=== PATIENT | female | born 2000 | race Caucasian/White ===

== ENCOUNTER 2023-06-05 09:44 | Emergency (ER) | payer MEDICAID ==
[~2023-06-05] VITALS: Ht 152.4 cm; Wt 73.5 kg
[2023-06-05 10:00] VITALS: BP 102/67; PULSE 76; RESP 18; TEMP 98; O2SAT 98
[2023-06-05 10:52] LABS: FLU A ANTIGEN negative (NEGATIVE); FLU B ANTIGEN NEGATIVE (NEGATIVE)
[2023-06-05] MEDS ORDERED: KETOROLAC 60 MG/2 ML VIAL IM ONE (11:45)
[2023-06-05] MEDS ORDERED: ONDANSETRON 4 MG ODT PO ONE (11:45)
[2023-06-05] MEDS ORDERED: ONDA8TAB87 PO (12:07)
[2023-06-05] MEDS ORDERED: IBUP-2213 PO (12:07)
[2023-06-05] MEDS ORDERED: ATA25 PO (12:07)
[2023-06-05] MEDS ORDERED: HYDR-5191 PO (12:07)
[2023-06-05 12:39] VITALS: BP 112/74; PULSE 74; RESP 19; TEMP 98; O2SAT 99
== END 2023-06-05 12:39 | disposition home or self-care (01) ==
LOC: MED 09:44
DX: R10.13 Epigastric pain (principal); R11.0 Nausea; R51.9 Headache, unspecified; M79.10 Myalgia, unspecified site; Z98.890 Other specified postprocedural states; Z20.822 Contact with and (suspected) exposure to COVID-19
CPT/HCPCS: 81002; 81025; 87426; 87804; 96372; 99283; J1885; Q0162

== ENCOUNTER 2023-07-16 07:29 | Emergency (ER) | payer MEDICAID ==
[~2023-07-16] VITALS: Ht 157.5 cm; Wt 63.5 kg
[~2023-07-16 07:29] MED LIST: ATA25 PO; HYDR-5191 PO; IBUP-2213 PO; ONDA8TAB87 PO
[2023-07-16 07:34] VITALS: BP 105/55; PULSE 66; RESP 14; TEMP 98; O2SAT 98
[2023-07-16 07:56] VITALS: BP 105/55; PULSE 66; RESP 14; TEMP 98; O2SAT 98
[2023-07-16] MEDS ORDERED: ONDANSETRON 4 MG ODT PO ONE (08:00)
[2023-07-16 08:19] LABS: APPEARANCE,URINE CLEAR (CLEAR); BILIRUBIN,URINE NEGATIVE (NEGATIVE); BLOOD, URINE NEGATIVE (NEGATIVE); COLOR,URINE YELLOW (YELLOW); LEUKOCYTE ESTERASE ,URINE 1+ (NEGATIVE); NITRITE, URINE POSITIVE (NEGATIVE); PROTEIN,URINE NEGATIVE (NEGATIVE); UGLUCOSE NEGATIVE (NEGATIVE); UROBILINOGEN,URINE 0.2 EU/dL (0.2 - 1)
[2023-07-16 08:30] LABS: AMPHETAMINE, URINE NEGATIVE ng/ml (NEG <=1000); BARBITURATE, URINE NEGATIVE ng/ml (NEG <=200); BENZODIAZEPINE, URINE NEGATIVE ng/mL (NEG <=200); CANNABINOID, URINE NEGATIVE ng/mL (NEG <=50); COCAINE, URINE NEGATIVE ng/mL (NEG <=300); OPIATE, URINE NEGATIVE ng/mL (NEG <=2000); PHENCYCLIDINE SCREEN,URINE NEGATIVE ng/mL (NEG <=25)
[2023-07-16 08:30] LABS: BASOPHILS # (AUTO) 0.1 K/uL (0.00-0.22); BASOPHILS % (AUTO) 0.9 % (0.0-2.0); EOSINOPHILS # (AUTO) 0.2 K/uL (0-0.4); EOSINOPHILS % (AUTO) 2.7 % (0.0-4.0); HEMATOCRIT 42.4 % (36-48); HEMOGLOBIN 14.4 g/dL (12.0-16.0); LYMPHOCYTES # (AUTO) 1.7 K/uL (2.5-16.5); LYMPHOCYTES % (AUTO) 27.6 % (20.5-51.1); MEAN CORPUSCULAR HEMOGLOBIN 31 pg (27-31); MEAN CORPUSCULAR HGB CONC 34 g/dL (33-37); MEAN CORPUSCULAR VOLUME 90.4 fL (80-94); MONOCYTES # (AUTO) 0.3 K/uL (0.8-1.0); MONOCYTES % (AUTO) 5.4 % (1.7-9.3); NEUTROPHILS # (AUTO) 3.9 K/uL (1.8-7.7); NEUTROPHILS % (AUTO) 63.4 % (42.2-75.2); PLATELET COUNT (AUTO) 259 K/uL (140-450); RED BLOOD CELL COUNT(AUTO) 4.69 MIL/uL (4.20-5.40); RED CELL DISTRIBUTION WIDTH 12.9 % (11.6-13.7); WHITE BLOOD COUNT (AUTO) 6.1 K/uL (4.8-10.8)
[2023-07-16 08:45] LABS: BACTERIA,URINE 2+ /HPF (None Seen); RBC,URINE 0-5 /HPF (0-5); SQUAMOUS EPITHELIAL CELL,UR 20-50 /LPF (0-3 (FEW)); WBC,URINE 16-25 (MOD) /HPF (0-5)
[2023-07-16 08:50] LABS: ALBUMIN 3.7 g/dL (3.4-5.0); ANION GAP 8.3 (8-16); CARBON DIOXIDE 29.5 mmol/L (21-32); CREATININE 0.8 mg/dL (0.6-1.3); POTASSIUM 3.8 mmol/L (3.5-5.1); TOTAL BILIRUBIN 0.4 mg/dL (0.0-1.0); TOTAL PROTEIN, SERUM 7.4 g/dL (6.4-8.2)
[2023-07-16] MEDS ORDERED: ONDA-188 SL (08:59)
[2023-07-16] MEDS ORDERED: CEPH-588 PO (08:59)
== END 2023-07-16 09:16 | disposition home or self-care (01) ==
LOC: MED 07:29
DX: N30.00 Acute cystitis without hematuria (principal); R11.2 Nausea with vomiting, unspecified; H92.03 Otalgia, bilateral; Z88.8 Allergy status to other drugs, medicaments and biological substances; Z79.899 Other long term (current) drug therapy
CPT/HCPCS: 36415; 80053; 80305; 81001; 81025; 83690; 85025; 87086; 99283; Q0162

== ENCOUNTER 2023-08-10 13:21 | Emergency (ER) | payer MEDICAID ==
[2023-08-10] VITALS (7 sets, daily range): BP systolic 141; BP diastolic 85; PULSE 102; RESP 16; TEMP 97.8–98.3; O2SAT 98
[~2023-08-10] VITALS: Ht 160 cm; Wt 77.1 kg
[~2023-08-10 13:21] MED LIST changes: +CEPH-588 PO; +ONDA-188 SL
[2023-08-10 14:02] LABS: BASOPHILS # (AUTO) 0.1 K/uL (0.00-0.22); BASOPHILS % (AUTO) 0.7 % (0.0-2.0); EOSINOPHILS # (AUTO) 0.1 K/uL (0-0.4); EOSINOPHILS % (AUTO) 1.6 % (0.0-4.0); HEMATOCRIT 44.9 % (36-48); HEMOGLOBIN 15.4 g/dL (12.0-16.0); LYMPHOCYTES # (AUTO) 2.5 K/uL (2.5-16.5); LYMPHOCYTES % (AUTO) 30.5 % (20.5-51.1); MEAN CORPUSCULAR HEMOGLOBIN 31 pg (27-31); MEAN CORPUSCULAR HGB CONC 34 g/dL (33-37); MEAN CORPUSCULAR VOLUME 89.5 fL (80-94); MONOCYTES # (AUTO) 0.5 K/uL (0.8-1.0); MONOCYTES % (AUTO) 6.3 % (1.7-9.3); NEUTROPHILS % (AUTO) 60.9 % (42.2-75.2); PLATELET COUNT (AUTO) 319 K/uL (140-450); RED BLOOD CELL COUNT(AUTO) 5.02 MIL/uL (4.20-5.40); RED CELL DISTRIBUTION WIDTH 12.7 % (11.6-13.7); WHITE BLOOD COUNT (AUTO) 8.2 K/uL (4.8-10.8)
[2023-08-10 14:19] LABS: ALANINE AMINOTRANSFERASE 23 U/L (12-78); ALCOHOL, BLOOD < 3 mg/dL (<10); ALKALINE PHOSPHATASE 96 U/L (50-136); ANION GAP 12.6 (8-16); ASPARTATE AMINOTRANSFERASE 17 U/L (15-37); CALCIUM 9.4 mg/dL (8.5-10.1); CARBON DIOXIDE 27.4 mmol/L (21-32); CHLORIDE 101 mmol/L (98-107); CREATININE 0.8 mg/dL (0.6-1.3); GFR ARICAN-AMERICAN 112 mL/min (>90); GFR NON ARICAN-AMERICAN 93 mL/min (>90); GLUCOSE 118 mg/dL (74-106); SALICYLATE < 2.8 mg/dL (2.8-20.0); SODIUM SERUM 138 mmol/L (136-145); TOTAL BILIRUBIN 0.3 mg/dL (0.0-1.0); TOTAL PROTEIN, SERUM 8.2 g/dL (6.4-8.2); UREA NITROGEN, BLOOD 8 mg/dL (7-18)
[2023-08-10 14:20] LABS: ACETAMINOPHEN < 0.5 ug/ml (10-30)
[2023-08-10 15:21] LABS: APPEARANCE,URINE CLEAR (CLEAR); BILIRUBIN,URINE NEGATIVE (NEGATIVE); BLOOD, URINE 3+ (NEGATIVE); LEUKOCYTE ESTERASE ,URINE NEGATIVE (NEGATIVE); NITRITE, URINE NEGATIVE (NEGATIVE); PROTEIN,URINE NEGATIVE (NEGATIVE); UGLUCOSE NEGATIVE (NEGATIVE); UROBILINOGEN,URINE 0.2 EU/dL (0.2 - 1)
[2023-08-10 15:30] LABS: COLOR,URINE HAZY (YELLOW)
[2023-08-10 15:34] LABS: BACTERIA,URINE >30 (MANY) /HPF (None Seen); RBC,URINE 11-20 (MOD) /HPF (0-5); WBC,URINE 0-5 /HPF (0-5)
[2023-08-10 15:36] LABS: AMPHETAMINE, URINE NEGATIVE ng/ml (NEG <=1000); BARBITURATE, URINE NEGATIVE ng/ml (NEG <=200); BENZODIAZEPINE, URINE NEGATIVE ng/mL (NEG <=200); CANNABINOID, URINE NEGATIVE ng/mL (NEG <=50); COCAINE, URINE NEGATIVE ng/mL (NEG <=300); OPIATE, URINE NEGATIVE ng/mL (NEG <=2000); PHENCYCLIDINE SCREEN,URINE NEGATIVE ng/mL (NEG <=25)
[2023-08-11 01:12] VITALS: O2SAT 98
[2023-08-11 03:22] VITALS: O2SAT 98
[2023-08-11 06:20] VITALS: O2SAT 98
[2023-08-11 06:26] VITALS: BP 90/57; PULSE 71; RESP 17
[2023-08-11 19:51] VITALS: O2SAT 99
== END 2023-08-11 20:40 ==
LOC: MED 13:21
DX: R45.851 Suicidal ideations (principal); Z20.822 Contact with and (suspected) exposure to COVID-19; T43.592A Poisoning by other antipsychotics and neuroleptics, intentional self-harm, initial encounter; T39.312A Poisoning by propionic acid derivatives, intentional self-harm, initial encounter; T44.3X2A Poisoning by other parasympatholytics [anticholinergics and antimuscarinics] and spasmolytics, intentional self-harm, initial encounter; Z79.899 Other long term (current) drug therapy; Y92.89 Other specified places as the place of occurrence of the external cause
CPT/HCPCS: 36415; 80053; 80305; 81001; 81025; 85025; 87086; 87426; 87635; 93005; 99285; C9803; G0480; G0482

== ENCOUNTER 2024-01-12 12:35 | Emergency (ER) | payer MEDICAID ==
[~2024-01-12] VITALS: Ht 157.5 cm; Wt 85.7 kg
[2024-01-12 12:50] VITALS: BP 95/66; PULSE 73; RESP 18; TEMP 98.8; O2SAT 99
[2024-01-12] MEDS: MECLIZINE 25 MG TAB PO ONE (14:52)
[2024-01-12] MEDS: ACETAMINOPHEN 325 MG TAB PO ONE (14:52)
[2024-01-12] MEDS ORDERED: MECL-303 PO (15:02)
[2024-01-12] MEDS ORDERED: ONDA-188 PO (15:02)
== END 2024-01-12 15:14 | disposition home or self-care (01) ==
LOC: MED 12:35
DX: R42 Dizziness and giddiness (principal); L98.9 Disorder of the skin and subcutaneous tissue, unspecified; R51.9 Headache, unspecified; R11.0 Nausea; Z79.899 Other long term (current) drug therapy
CPT/HCPCS: 81025; 99284; J8597